=== PATIENT | female | born 1945 | race Caucasian/White ===

== ENCOUNTER 2017-09-10 15:36 | Inpatient (IN) | payer MEDICARE ==
[~2017-09-10] VITALS: Ht 157.5 cm; Wt 61.2 kg
--- NOTE | 2017-09-10 15:36 | NUR ---
[id number] FOR SYNCOPE, BS-120, 100CC IV NS GIVEN BY EMS. NAD NOTED. PT AAO X4, AMB WITH STEADY GAIT. RR EVEN AND UNLABORED. VSS. PENDING MD ORELLANA.
[2017-09-10 15:58] LABS: BASOPHILS % (AUTO) 0.4 % (0.0-2.0); EOSINOPHILS % (AUTO) 0.7 % (0.0-6.0); HEMATOCRIT 41 % (33-45); HEMOGLOBIN 14.1 g/dL (11.5-14.8); LYMPHOCYTES # (AUTO) 1.2 /CMM (0.8-4.8); LYMPHOCYTES % (AUTO) 15.4 % (20.0-44.0); MEAN CORPUSCULAR HGB CONC 35 g/dl (31.0-36.0); MEAN CORPUSCULAR VOLUME 89 fL (82-100); MONOCYTES # (AUTO) 0.7 /CMM (0.1-1.30); MONOCYTES % (AUTO) 8.6 % (2.0-12.0); NEUTROPHILS # (AUTO) 5.6 /CMM (1.8-8.9); NEUTROPHILS % (AUTO) 74.9 % (43.0-81.0); PLATELET COUNT (AUTO) 250 /CMM (150-450); RDW COEFFICIENT OF VARIATION 12.8 (11.5-15.0); RED BLOOD CELL COUNT(AUTO) 4.63 MIL/uL (4.0-5.2); WHITE BLOOD COUNT (AUTO) 7.6 K/uL (4.3-11.0)
[2017-09-10 16:07] LABS: CALCIUM, SERUM 9.5 mg/dL (8.5-10.1); CARBON DIOXIDE 30 mmol/L (21-32); CHLORIDE 95 mmol/L (98-107); CREATININE 1.2 mg/dL (0.6-1.3); GLUCOSE 138 mg/dL (74-106); POTASSIUM 3.2 mmol/L (3.5-5.1); SODIUM SERUM 134 mmol/L (136-145); UREA NITROGEN, BLOOD 26 mg/dL (7-18)
[2017-09-10 16:11] LABS: INR 0.91 (0.85-1.15)
[2017-09-10 16:15] LABS: TROPONIN I < 0.017 ng/mL (0.00-0.056)
[2017-09-10] MEDS ORDERED: POTASSIUM CHLORIDE 20 MEQ TAB.PRT.SR PO ONE ×2 (17:00→17:05)
[2017-09-10] MEDS ORDERED: LOSA100T15 PO (17:18)
[2017-09-10] MEDS ORDERED: HYDR12.5 PO (17:18)
--- NOTE | 2017-09-10 17:21 | NUR ---
CALLED NURSING SUPP FOR BED
--- NOTE | 2017-09-10 17:38 | NUR ---
ADMIT TO BED 120-1
--- NOTE | 2017-09-10 17:42 | NUR ---
REPORT GIVEN TO JONATHAN SANCHEZ FOR JOYCE
--- NOTE | 2017-09-10 18:40 | NUR ---
HOT ROOM ATTENDANT NOTE RECEIVED REPORT FROM [facility]. PT RECEIVED IN [facility]. A/OX3. NO C/O PAIN. V/S TAKEN. DAUGHTER AT BEDSIDE. AWAITING ADMISSION ORDERS. TELE SR. ALL SAFETY PRECAUTIONS IN PLACE.
[2017-09-10 18:45] VITALS: BP 133/77
--- NOTE | 2017-09-10 19:30 | NUR ---
MACHINE SPLITTER INITIAL NOTE PT RECEIVED AWAKE AND ALERT X4. ABLE TO VERBALIZE NEEDS. NO C/O PAIN NOTE. ON ROOM AIR AND SATURATING WELL. BREATHING REGULAR AND UNLABORED. IV IN PLACE. NO C/O DIZZINESS OR SOB. CALL LIGHT WITHIN REACH. AWAITING ADMITTING ORDERS. WILL CONTINUE TO MONITOR.
[2017-09-10 20:00] VITALS: BP 120/85
[2017-09-10] MEDS ORDERED: HYDROCODONE/APAP 5/325MG 1 EACH TABLET PO PRN (21:30)
[2017-09-10] MEDS ORDERED: Z GUARD REMEDY 2 OZ OINT TP PRN (21:30)
[2017-09-10] MEDS ORDERED: ACETAMINOPHEN 325 MG TABLET PO PRN (21:30)
[2017-09-10] MEDS ORDERED: ZOLPIDEM TARTRATE 5 MG TABLET PO PRN (21:30)
[2017-09-10] MEDS ORDERED: MAGNESIUM HYDROXIDE 30 ML UDC PO PRN (21:30)
[2017-09-10] MEDS ORDERED: ONDANSETRON HCL/PF 4 MG/2 ML VIAL IVP PRN (21:30)
[2017-09-11] VITALS: BP 107/64
[2017-09-11 04:00] VITALS: BP 137/84
--- NOTE | 2017-09-11 06:56 | NUR ---
RESEARCH GREENHOUSE SUPERVISOR CLOSING NOTE PT REMAINED STABLE DURING SHIFT. NO ACUTE DISTRESS NOTED. BP ALL SHIFT SBP 107- 137. NO C/O DIZZINESS NOTED. ALL NEEDS ATTENDED TO PROMPTLY. CALL LIGHT WITHIN REACH. WILL ENDORSE TO NEXT SHIFT FOR CONTINUITY OF CARE.
[2017-09-11 07:21] LABS: BASOPHILS % (AUTO) 0.2 % (0.0-2.0); EOSINOPHILS % (AUTO) 0.8 % (0.0-6.0); HEMATOCRIT 38 % (33-45); LYMPHOCYTES # (AUTO) 1.1 /CMM (0.8-4.8); LYMPHOCYTES % (AUTO) 15.6 % (20.0-44.0); MEAN CORPUSCULAR HGB CONC 34 g/dl (31.0-36.0); MEAN CORPUSCULAR VOLUME 91 fL (82-100); MONOCYTES # (AUTO) 0.6 /CMM (0.1-1.30); MONOCYTES % (AUTO) 8.8 % (2.0-12.0); NEUTROPHILS # (AUTO) 5.3 /CMM (1.8-8.9); NEUTROPHILS % (AUTO) 74.6 % (43.0-81.0); PLATELET COUNT (AUTO) 211 /CMM (150-450); RDW COEFFICIENT OF VARIATION 13.4 (11.5-15.0); RED BLOOD CELL COUNT(AUTO) 4.17 MIL/uL (4.0-5.2); WHITE BLOOD COUNT (AUTO) 7.1 K/uL (4.3-11.0)
[2017-09-11 07:41] LABS: CHOLESTEROL 194 mg/dL (<200); HDL CHOLESTEROL 70 mg/dL (40-60); LDL 113 mg/dL (0-99); TRIGLYCERIDES 47 mg/dL (30-150)
[2017-09-11 07:46] LABS: CALCIUM, SERUM 8.6 mg/dL (8.5-10.1); CARBON DIOXIDE 28 mmol/L (21-32); CHLORIDE 100 mmol/L (98-107); CREATININE 0.8 mg/dL (0.6-1.3); GLUCOSE 99 mg/dL (74-106); PHOSPHORUS 3.7 mg/dL (2.5-4.9); SODIUM SERUM 136 mmol/L (136-145); UREA NITROGEN, BLOOD 23 mg/dL (7-18)
[2017-09-11 08:00] VITALS: BP 126/74
--- NOTE | 2017-09-11 09:49 | NUR ---
ASSISTANT HVAC MECHANIC NOTE DR. BENTON ORDERED ORTHOSTATICS. LAYING 128/78 HR 71, SITTING 138/92 HR 71, STANDING 141/91 HR 80. REPORTED FINDING TO DR. BENTON.
[2017-09-11] MEDS ORDERED: IV NS 0.9% 1,000 ML IV SCH (10:30)
[2017-09-11] MEDS ORDERED: LOSARTAN POTASSIUM 50 MG TABLET PO SCH (10:30)
[2017-09-11 10:55] VITALS: BP 129/84
--- NOTE | 2017-09-11 14:46 | NUR ---
DISCHARGE MED SURG PT DISCHARGED HOME. TRANSFER VIA PRIVATE CAR BY DAUGHTER. ALL ORDERS CARRIED OUT. PT CLEAN AND DRY. ALL DISCHARGE PAPERWORK SIGNED AND GIVEN TO PT. PT WHEELED OUT BY RELATIONSHIP ADVISOR. REMOVE ID BAND AND IV. PT HAS APPT WITH [facility] CHANGE ATTENDANT ON SATURDAY TO F/U CARE.
== END 2017-09-11 14:48 | disposition home or self-care (01) | DRG 641 ==
LOC: ER 15:39 → TELE1 18:06 → MEDSG1 09-11 09:45
PROVIDERS: ADMIT Nurse Practitioner Acute Care; ATTEND Nurse Practitioner Acute Care
DX: E86.0 Dehydration (principal); E87.1 Hypo-osmolality and hyponatremia; E87.6 Hypokalemia; I10 Essential (primary) hypertension; E78.5 Hyperlipidemia, unspecified; R73.9 Hyperglycemia, unspecified
CPT/HCPCS: 36415; 70450-TC; 71045-TC; 80048-TC; 80061-TC; 82962-TC; 83735-TC; 84100-TC; 84484-TC; 85025-TC; 85730-TC; 87081-TC; A4606; J7030; Z7610